=== PATIENT | male | born 1940 | race Caucasian/White ===

== ENCOUNTER 2017-05-29 14:30 | Emergency (ER) | payer MEDICARE, OTHER ==
--- NOTE | 2017-05-29 14:42 | UC ---
Shortness of Breath HPI - HPI Summary HPI Summary: 76 YEAR OLD MALE PRESENTS WITH COMPLAINS OF WORSENING SHORTNESS OF BREATH X 1 WEEK. I AM VERY CONCERNED ABOUT CHF EXACERBATION VS PE SO I WILL SEND HIM TO THE ER. - History of Current Complaint Stated Complaint: SOB/FATIGUE Time Seen by Provider: 05/29/17 14:35 Hx Obtained From: Patient Onset/Duration: Sudden Onset Timing: Constant Current Severity: Severe Dyspnea At: Exertion Aggrevating Factors: Movement - Allergy/Home Medications Allergies/Adverse Reactions: Allergies Allergy/AdvReac Type Severity Reaction Status Date / Time No Known Allergies Allergy Verified 12/15/14 18:39 PMH/Surg Hx/FS Hx/Imm Hx Previously Healthy: Yes - Surgical History Surgical History: Yes Surgery Procedure, Year, and Place: kidney stent, amputated pinky toe L, bypass in R leg, bypass x 2 in L leg, bypass in neck, appy, gallbladder, T & A, - Family History Known Family History: Positive: None - Social History Alcohol Use: Occasionally Substance Use Type: None Smoking Status (MU): Former Smoker Type: Cigarettes Length of Time of Smoking/Using Tobacco: 25 yrs Have You Smoked in the Last Year: No When Did the Patient Quit Smoking/Using Tobacco: 30 yrs ago Review of Systems Constitutional: Negative Skin: Negative Eyes: Negative ENT: Negative Respiratory: Shortness Of Breath Cardiovascular: Negative Gastrointestinal: Negative Genitourinary: Negative Motor: Negative Neurovascular: Negative Musculoskeletal: Negative Neurological: Negative Psychological: Negative All Other Systems Reviewed And Are Negative: Yes Physical Exam Triage Information Reviewed: Yes Vital Signs Reviewed: Yes Eye Exam: Normal ENT Exam: Normal Dental Exam: Normal Neck exam: Normal Neck: Positive: 1 Respiratory: Positive: Decreased breath sounds, Rhonchi, Wheezing Cardiovascular Exam: Normal Abdominal Exam: Normal Musculoskeletal Exam: Normal Neurological Exam: Normal Psychological Exam: Normal Skin Exam: Normal Shortness of Breath Dx - Differential Dx/Diagnosis Provider Diagnoses: SHORT OF BREATH. CHF Discharge - Discharge Plan Condition: Guarded Disposition: [facility]
[2017-05-29 15:08] VITALS: BP 127/50
== END 2017-05-29 15:00 | disposition short-term general hospital (02) ==
LOC: UCCORT 14:30
DX: R06.02 Shortness of breath (principal); I50.9 Heart failure, unspecified
CPT/HCPCS: 93005; 99213; G0463